=== PATIENT | female | born 1985 | race Caucasian/White ===

== ENCOUNTER 2021-04-03 07:30 | Inpatient (IN) | payer BC ==
[~2021-04-03] VITALS: Ht 167.6 cm; Wt 52.0 kg
[2021-04-03] MEDS ORDERED: VITMTA PO (08:41)
[2021-04-03] MEDS ORDERED: CEPHALEXIN 500 MG CAP PO ONE (08:55)
[2021-04-03] MEDS: MULTIVITAMINS/MINERALS THERAP 1 TAB PO SCH (09:00)
[2021-04-03] MEDS: FOLIC ACID 1 MG TAB PO SCH (09:00)
[2021-04-03] MEDS: THIAMINE 100 MG TAB PO SCH ×2 (09:00→21:35)
[2021-04-03] MEDS ORDERED: B-122500 PO (12:12)
[2021-04-03] MEDS ORDERED: VITA-175 PO (12:12)
[2021-04-03] MEDS ORDERED: PURE500C5 PO (12:12)
[2021-04-03] MEDS ORDERED: HOME MED LIST COMPLETE! XX SCH (12:15)
[2021-04-03] MEDS ORDERED: MAALOX 30 ML SUSP *UDC PO PRN (12:45)
[2021-04-03] MEDS ORDERED: ACETAMINOPHEN TAB 650MG DOSE (2X325MG) PO PRN (12:45)
[2021-04-03] MEDS ORDERED: LORazepam 2 MG TAB PO PRN (12:45)
[2021-04-03] MEDS ORDERED: traZODone 50 MG TAB PO PRN (12:45)
[2021-04-04 06:12] VITALS: BP 119/63
[2021-04-04] MEDS: FOLIC ACID 1 MG TAB PO SCH (09:24)
[2021-04-04] MEDS: THIAMINE 100 MG TAB PO SCH ×2 (09:24→21:51)
[2021-04-04] MEDS: MULTIVITAMINS/MINERALS THERAP 1 TAB PO SCH (09:24)
[2021-04-04 12:55] LABS: ALBUMIN 3.9 GM/DL (3.2-5.2); ALT/SGPT 26 U/L (12-78); BILIRUBIN,TOTAL 0.2 MG/DL (0.2-1.0); BLOOD UREA NITROGEN 5 MG/DL (7-18); CALCIUM LEVEL 9.4 MG/DL (8.5-10.1); CARBON DIOXIDE LEVEL 32 MEQ/L (21-32); CHLORIDE LEVEL 98 MEQ/L (98-107); CREATININE FOR GFR 0.59 MG/DL (0.55-1.30); GLOMERULAR FILTRATION RATE > 60.0 (>60); GLUCOSE, FASTING 93 MG/DL (70-100); POTASSIUM SERUM 3.4 MEQ/L (3.5-5.1); SODIUM LEVEL 137 MEQ/L (136-145)
[2021-04-04] MEDS ORDERED: LORazepam 2 MG TAB PO PRN (14:55)
[2021-04-04] MEDS ORDERED: POTASSIUM CHLORIDE 10MEQ SR TABLET PO ONE (15:00)
[2021-04-04] MEDS ORDERED: SENOKOT S TAB PO PRN (15:00)
[2021-04-04] MEDS: SERTRALINE HCL 25 MG TABLET PO SCH (17:57)
[2021-04-04 18:00] VITALS: BP 123/69
[2021-04-04] MEDS: MOM 30ML SUSPENSION UDC PO PRN (18:16)
[2021-04-04] MEDS ORDERED: THIAMINE 100 MG TAB PO SCH (21:00)
[2021-04-04] MEDS ORDERED: lamoTRIgine 25MG TAB PO SCH (21:00)
[2021-04-04] MEDS: PRAZOSIN 1 MG CAP PO SCH (21:52)
[2021-04-05 06:07] VITALS: BP 111/58
[2021-04-05 06:12] VITALS: BP 111/58
[2021-04-05] MEDS ORDERED: FOLIC ACID 1 MG TAB PO SCH (09:00)
[2021-04-05] MEDS ORDERED: MULTIVITAMINS/MINERALS THERAP 1 TAB PO SCH (09:00)
[2021-04-05] MEDS: SERTRALINE HCL 25 MG TABLET PO SCH (09:11)
[2021-04-05] MEDS: MULTIVITAMINS/MINERALS THERAP 1 TAB PO SCH (09:11)
[2021-04-05] MEDS: THIAMINE 100 MG TAB PO SCH ×2 (09:11→21:11)
[2021-04-05] MEDS: FOLIC ACID 1 MG TAB PO SCH (09:12)
[2021-04-05 18:18] VITALS: BP 129/59
[2021-04-05] MEDS: PRAZOSIN 1 MG CAP PO SCH (21:11)
[2021-04-05] MEDS: hydrOXYzine 25 MG TAB PO PRN (21:23)
[2021-04-05 21:30] VITALS: BP 129/59
[2021-04-06 06:30] VITALS: BP 107/54
[2021-04-06 07:13] VITALS: BP 107/54
[2021-04-06] MEDS: MULTIVITAMINS/MINERALS THERAP 1 TAB PO SCH (08:50)
[2021-04-06] MEDS: SERTRALINE HCL 50 MG TAB PO SCH (08:50)
[2021-04-06] MEDS: FOLIC ACID 1 MG TAB PO SCH (08:50)
[2021-04-06] MEDS: NALTREXONE 50 MG TAB PO SCH (08:50)
[2021-04-06] MEDS: MOM 30ML SUSPENSION UDC PO PRN (09:45)
[2021-04-06] MEDS: hydrOXYzine 25 MG TAB PO PRN (16:53)
[2021-04-06 18:44] VITALS: BP 116/61
[2021-04-06 21:00] VITALS: BP 116/54
[2021-04-06] MEDS: PRAZOSIN 1 MG CAP PO SCH (21:29)
[2021-04-07 06:37] VITALS: BP 106/54
[2021-04-07] MEDS: NALTREXONE 50 MG TAB PO SCH (08:09)
[2021-04-07] MEDS: SERTRALINE HCL 50 MG TAB PO SCH (08:09)
[2021-04-07 18:17] VITALS: BP 116/78
[2021-04-07 20:08] VITALS: BP 110/59
[2021-04-07] MEDS: PRAZOSIN 1 MG CAP PO SCH (20:08)
[2021-04-08 06:12] VITALS: BP 112/57
[2021-04-08] MEDS: NALTREXONE 50 MG TAB PO SCH (08:06)
[2021-04-08] MEDS: SERTRALINE HCL 50 MG TAB PO SCH (08:06)
[2021-04-08] MEDS ORDERED: NALT50TA4 PO (08:40)
[2021-04-08] MEDS ORDERED: SERT50TA29 PO (08:40)
[2021-04-08] MEDS ORDERED: MINI1CAP PO (08:40)
== END 2021-04-08 15:15 | disposition home or self-care (01) | DRG 755 ==
LOC: M ED 07:30 → M ED INP 12:45 → M PSY 14:44
PROVIDERS: ADMIT Student in an Organized Health Care Education/Training Program; ATTEND Student in an Organized Health Care Education/Training Program
DX: F43.10 Post-traumatic stress disorder, unspecified (principal); G40.909 Epilepsy, unspecified, not intractable, without status epilepticus; R45.851 Suicidal ideations; F10.10 Alcohol abuse, uncomplicated; F44.89 Other dissociative and conversion disorders; Z62.810 Personal history of physical and sexual abuse in childhood; Z79.899 Other long term (current) drug therapy; Z88.8 Allergy status to other drugs, medicaments and biological substances